=== PATIENT | female | born 1985 | race Two or more races ===

== ENCOUNTER 2019-08-29 09:46 | Inpatient (IN) | payer OTHER ==
[~2019-08-29] VITALS: Ht 177.8 cm; Wt 94.8 kg
[2019-08-29] MEDS ORDERED: Acetaminophen 500mg (ES) tab ORAL PRN (16:30)
[2019-08-29] MEDS ORDERED: DiphenhydrAMINE 50mg/ml Inj IV PRN (16:30)
[2019-08-29] MEDS ORDERED: Hydrocortisone 100mg Inj IV PRN (16:30)
[2019-08-29] MEDS ORDERED: Zolpidem 5mg tab ORAL PRN (17:00)
[2019-08-29 17:15] LABS: BASOPHILS % (AUTO) 1.1 % (0.0-2.0); EOSINOPHILS % (AUTO) 1.8 % (0.0-3.0); HEMATOCRIT 44.8 % (37.0-47.0); HEMOGLOBIN 14.2 G/DL (12.0-16.0); LYMPHOCYTES % (AUTO) 23.8 % (20.0-45.0); MEAN CORPUSCULAR VOLUME 97 FL (80-99); MONOCYTES % (AUTO) 9.5 % (1.0-10.0); NEUTROPHILS % (AUTO) 63.9 % (45.0-75.0); PLATELET COUNT 175 K/UL (150-450); RED BLOOD COUNT 4.63 M/UL (4.20-5.40); RED CELL DISTRIBUTION WIDTH 13.8 % (11.6-14.8); WHITE BLOOD COUNT 6.1 K/UL (4.8-10.8)
--- NOTE | 2019-08-29 17:38 | History & Physical ---
History and Physical History & Physicial Full noted dictated #[id number]. 33 yo male electively admitted for participation in [id number]. He feels well and has no complaints. 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
[2019-08-29] MEDS ORDERED: [UNRECOGNIZED DRUG - OTHER] PO (17:54)
--- NOTE | 2019-08-29 21:30 | History and Physical Report ---
DATE OF ADMISSION: 08/29/2019 CHIEF COMPLAINT: The patient is electively admitted for participation in Sponto clinical trial [id number]. HISTORY OF PRESENT ILLNESS: The patient is a 33-year-old man followed by Dr. Jared Enciso in my office for HIV. He was diagnosed in [place] approximately 10 years ago. His HIV vikki was 114, where he was put on Atripla and became suppressed and has remained suppressed apart from a blip that was caused by lack of access to medication. The patient was switched a few years ago to Odefsey, which he is tolerating well. He is in good condition and has no acute complaints today and he is willing to participate in the above captioned clinical trial. PAST MEDICAL HISTORY: Normal childhood illnesses. No adult illnesses other than his HIV. SURGERY: Denies. MEDICATIONS: An an outpatient include Odefsey 1 tablet once a day. ALLERGIES: No known drug allergies. SOCIAL HISTORY: The patient does not smoke or drink. Does not use recreational drugs. 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 FAMILY HISTORY: Noncontributory. PHYSICAL EXAMINATION: VITAL SIGNS: Pending. HEENT: Normocephalic and atraumatic. Pupils are equal, round, and reactive. Oropharynx is without thrush or leukoplakia. NECK: Supple. No cervical or axillary adenopathy. LUNGS: Clear to auscultation and percussion. HEART: Had a regular rhythm without murmurs, rubs, or gallops. ABDOMEN: Soft and nontender. No hepatosplenomegaly. EXTREMITIES: He had no cyanosis, clubbing, or edema. NEUROLOGIC: Grossly nonfocal. LABORATORY DATA: Laboratory results are pending. IMPRESSION: 1. HIV infection. 2. Participation in clinical trial. DISCUSSION: The patient is a very pleasant 33-year-old man, who wishes to participate in the above Sponto clinical trial. He will receive study medication in the morning. He will be observed for 2 further nights anticipating discharge on morning. The patient was afforded an opportunity again to ask questions and about participation in a clinical trial. He was informed of risks and benefits and he wishes to continue. PLAN: 1. Dose study medication at 0630 hours tomorrow morning. 2. Manage per protocol. Jared Michaels M.D. DR: HANNAH JOB#: [id number] CC: Jared Michaels M.D.; [address] [id number]; [place] [address]; Fax#: [phone] [facility]
[2019-08-30] MEDS ORDERED: [UNRECOGNIZED DRUG - OTHER] ORAL SCH (06:30)
--- NOTE | 2019-08-30 09:50 | General Progress Note ---
Progress Note Progress Note S: Pt doing well, tolerated study drug without observed AEs O: VSS Afebrile HEENT: nc/at Lungs: clear Cor: reg no murmur Abd: soft, NT Labs Test 08/29/19 16:42 White Blood Count 6.1 K/UL (4.8-10.8) Red Blood Count 4.63 M/UL (4.20-5.40) Hemoglobin 14.2 G/DL (12.0-16.0) Hematocrit 44.8 % (37.0-47.0) Mean Corpuscular Volume 97 FL (80-99) Mean Corpuscular Hemoglobin 30.8 PG (27.0-31.0) Mean Corpuscular Hemoglobin Concent 31.8 G/DL (32.0-36.0) Red Cell Distribution Width 13.8 % (11.6-14.8) Platelet Count 175 K/UL (150-450) Mean Platelet Volume 8.5 FL (6.5-10.1) Neutrophils (%) (Auto) 63.9 % (45.0-75.0) Lymphocytes (%) (Auto) 23.8 % (20.0-45.0) Monocytes (%) (Auto) 9.5 % (1.0-10.0) Eosinophils (%) (Auto) 1.8 % (0.0-3.0) Basophils (%) (Auto) 1.1 % (0.0-2.0) A: 1) HIV, well controlled on Odefsey 2) participation in [id number] P: 1) manage per protocol 2) anticipate discharge AM 09/01 Jared Michaels MD Aug 30, 2019 09:50
[2019-08-30] MEDS: ODEFSEY ORAL SCH (12:57)
[2019-08-31 00:30] VITALS: BP 112/61
--- NOTE | 2019-08-31 08:26 | General Progress Note ---
Progress Note Progress Note S: Pt doing well, no new complaints this morning O: VSS, Afebrile HEENT: nc/at Neck: supple Lungs: clear a/p Abd: soft, NT Ext: no c/c/e Labs from this morning are pending A: 1) HIV infection, well controlled 2) Participation in [id number] clinical trial P: 1) continue to observe in confinement 2) anticipate discharge tomorrow morning if stable 3) monitor labs Jared Michaels MD Aug 31, 2019 08:26
[2019-08-31 09:28] LABS: BASOPHILS % (AUTO) 0.8 % (0.0-2.0); HEMATOCRIT 38.3 % (37.0-47.0); LYMPHOCYTES % (AUTO) 25.5 % (20.0-45.0); MEAN CORPUSCULAR VOLUME 95 FL (80-99); MONOCYTES % (AUTO) 9.8 % (1.0-10.0); NEUTROPHILS % (AUTO) 61.9 % (45.0-75.0); PLATELET COUNT 155 K/UL (150-450); RED BLOOD COUNT 4.04 M/UL (4.20-5.40); RED CELL DISTRIBUTION WIDTH 12.6 % (11.6-14.8); WHITE BLOOD COUNT 6.2 K/UL (4.8-10.8)
[2019-08-31] MEDS: ODEFSEY ORAL SCH (13:32)
--- NOTE | 2019-09-01 07:04 | Discharge Summary ---
Discharge Summary Discharge Summary _ Discharge Summary dictated #[id number] 33 yo male electively admitted 08/29 for participation in Ent[employer] clinical trial [id number]. Pt tolerated administration of IP and had no observed AEs in hospital. Follow up will be in my office on Thursday. Discharge medication: Odefsey one tablet daily Discharge conditon: Jared Rock MD Sep 01, 2019 07:04
[2019-09-01 07:27] LABS: BASOPHILS % (AUTO) 0.8 % (0.0-2.0); EOSINOPHILS % (AUTO) 2.8 % (0.0-3.0); HEMATOCRIT 38.8 % (37.0-47.0); HEMOGLOBIN 13.4 G/DL (12.0-16.0); LYMPHOCYTES % (AUTO) 25.1 % (20.0-45.0); MEAN CORPUSCULAR VOLUME 94 FL (80-99); MONOCYTES % (AUTO) 10.1 % (1.0-10.0); NEUTROPHILS % (AUTO) 61.3 % (45.0-75.0); PLATELET COUNT 164 K/UL (150-450); RED BLOOD COUNT 4.11 M/UL (4.20-5.40); RED CELL DISTRIBUTION WIDTH 12.5 % (11.6-14.8); WHITE BLOOD COUNT 6.6 K/UL (4.8-10.8)
--- NOTE | 2019-09-01 20:30 | Discharge Summary ---
DATE OF ADMISSION: 08/29/2019 DATE OF DISCHARGE: 09/01/2019 DISCHARGE DIAGNOSES: 1. Participation in Ech[employer] clinical trial [id number]. 2. Human immunodeficiency virus infection, well controlled. CONDITION AT DISCHARGE: Stable. DISCHARGE MEDICATIONS: Include B[place]ark 1 tablet once a day. HISTORY OF PRESENT ILLNESS AND HOSPITAL COURSE: The patient 33-year-old man, who is electively admitted on Thursday for participation in clinical trial. He was given investigational product from Thursday and tolerated it well with no observed adverse events. He was monitored and was discharged in stable condition with follow-up in the office next week. Jared Michaels M.D. DR: HANNAH JOB#: [id number] CC: Jared Michaels M.D.; [address] [id number]; [place] [address]; Fax#: [phone]
== END 2019-09-01 07:00 | disposition home or self-care (01) | DRG 951 ==
LOC: EDSEX → 3E 16:19
PROC: XW0 New Technology, Anatomical Regions, Introduction (ICD-10-PCS; principal; 2019-08-29)
DX: Z00.6 Encounter for examination for normal comparison and control in clinical research program (principal); B20 Human immunodeficiency virus [HIV] disease
CPT/HCPCS: 36415; 85025

== ENCOUNTER 2019-09-12 09:25 | Inpatient (IN) | payer OTHER ==
[~2019-09-12] VITALS: Ht 177.8 cm; Wt 94.8 kg
[~2019-09-12 09:25] MED LIST: [UNRECOGNIZED DRUG - OTHER] PO
--- NOTE | 2019-09-12 15:00 | History and Physical Report ---
DATE OF ADMISSION: 09/12/2019 CHIEF COMPLAINT: The patient is electively admitted for participation in CLIPPATE clinical trial [id number]. HISTORY OF PRESENT ILLNESS: The patient is a 34-year-old man, followed by Dr. Jared Enciso in my office for the past 5 years when he was first seen by us in 2014, having just moved from [place], where he was diagnosed with HIV with a CD4 vikki of 114 and subsequent improvement after therapy was started with the upper 400s. The patient was started on Odefsey. He has done well in the intervening 5 years while he has been seen by Dr. Enciso. He volunteered to participate in the above clinical trial and is now admitted for the second of 5 planned biweekly admissions. He tolerated the first administration of study drug 2 weeks ago without any adverse events observed. PAST MEDICAL HISTORY: Otherwise unremarkable. 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 MEDICATIONS: As an outpatient include Odefsey 1 tablet daily. FAMILY HISTORY: Noncontributory. 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 He does not smoke. 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 REVIEW OF SYSTEMS: No fever, no cough, no shortness of breath. No nausea, vomiting, or diarrhea. No hematuria. He had occasional palpitations 2 days after study drug was administered last visit, which he thinks may be related to his coffee intake. No dysuria or hematuria. ALLERGIES: No known drug allergies. PHYSICAL EXAMINATION: GENERAL: Revealed a well-nourished, well-developed male, in no acute distress. He was alert, oriented x4. VITAL SIGNS: Stable. HEENT: Normocephalic, atraumatic. Pupils are equal, round, and reactive. Oropharynx was without thrush. NECK: Supple. LUNGS: Clear to auscultation. HEART: Regular rhythm without murmurs or gallops. ABDOMEN: Soft, nontender. EXTREMITIES: Without cyanosis, clubbing, or edema. IMPRESSION: 1. HIV infection, well controlled on Odefsey. 2. Participation in CLIPPATE clinical trial. 3. Prediabetes. 4. LGSIL. 5. History of hypovitaminosis D. DISCUSSION: The patient is a very pleasant 34-year-old man who is electively admitted today for participation in the above captioned clinical trial. He will receive study drugs tomorrow morning and we anticipate discharge on , provided that there are no adverse events observed. The patient was once again given an opportunity to ask questions and I am satisfied that he is able to give informed consent to continue participation. PLAN: Manage per protocol. Jared Michaels M.D. DR: OSCAR JOB#: [id number] CC: Jared Michaels M.D.; [address] [place] [address], [address]; [place] [address]; Fax#: [phone] [facility]
[2019-09-12] MEDS ORDERED: Acetaminophen 500mg (ES) tab ORAL PRN (17:00)
[2019-09-12] MEDS ORDERED: DiphenhydrAMINE 50mg/ml Inj IV PRN (17:00)
[2019-09-12] MEDS ORDERED: Hydrocortisone 100mg Inj IV PRN (17:00)
[2019-09-12 20:00] VITALS: BP 114/67
[2019-09-12 20:13] LABS: BASOPHILS % (AUTO) 0.8 % (0.0-2.0); EOSINOPHILS % (AUTO) 2.3 % (0.0-3.0); HEMATOCRIT 39.4 % (42.0-52.0); HEMOGLOBIN 12.7 G/DL (14.2-18.0); LYMPHOCYTES % (AUTO) 30.6 % (20.0-45.0); MEAN CORPUSCULAR VOLUME 97 FL (80-99); MONOCYTES % (AUTO) 7.3 % (1.0-10.0); PLATELET COUNT 189 K/UL (150-450); RED BLOOD COUNT 4.06 M/UL (4.70-6.10); RED CELL DISTRIBUTION WIDTH 13.3 % (11.6-14.8); WHITE BLOOD COUNT 5.9 K/UL (4.8-10.8)
--- NOTE | 2019-09-12 20:28 | History & Physical ---
History and Physical History & Physicial H&P dictated. S: Pt is electively admitted for [id number] clinical trial protocol. He has had no adverse events since last week. O: VSS Afebrile HEENT: nc/at Neck: supple Lungs: clear Cor: reg bradycardia Abd: soft, NT Ext: no c/c/e Neuro: non-focal Labs Test 09/12/19 18:55 White Blood Count 5.9 K/UL (4.8-10.8) Red Blood Count 4.06 M/UL (4.70-6.10) Hemoglobin 12.7 G/DL (14.2-18.0) Hematocrit 39.4 % (42.0-52.0) Mean Corpuscular Volume 97 FL (80-99) Mean Corpuscular Hemoglobin 31.2 PG (27.0-31.0) Mean Corpuscular Hemoglobin Concent 32.1 G/DL (32.0-36.0) Red Cell Distribution Width 13.3 % (11.6-14.8) Platelet Count 189 K/UL (150-450) Mean Platelet Volume 8.4 FL (6.5-10.1) Neutrophils (%) (Auto) 59.0 % (45.0-75.0) Lymphocytes (%) (Auto) 30.6 % (20.0-45.0) Monocytes (%) (Auto) 7.3 % (1.0-10.0) Eosinophils (%) (Auto) 2.3 % (0.0-3.0) Basophils (%) (Auto) 0.8 % (0.0-2.0) A: HIV, well controlled on Odefsey P: Pt wishes to continue his participation in the clinical trial. We will plan on dosing the investigational products tomorrow morning. All questions offered were addressed. Jared Michaels MD Sep 12, 2019 20:28
[2019-09-12] MEDS ORDERED: Zolpidem 5mg tab ORAL PRN (21:00)
[2019-09-13 05:45] VITALS: BP 107/65
[2019-09-13] MEDS ORDERED: [UNRECOGNIZED DRUG - OTHER] IVPB SCH (06:30)
[2019-09-13] MEDS ORDERED: [UNRECOGNIZED DRUG - OTHER] ORAL SCH (06:30)
[2019-09-13 08:00] VITALS: BP 113/69
[2019-09-13 11:52] VITALS: BP 100/63
--- NOTE | 2019-09-13 12:24 | General Progress Note ---
Progress Note Progress Note S: no new complaints; tolerated study medications given this morning without adverse events noted to date O: VSS. Afebrile HEENT: nc/at Neck: supple Lungs: clear Cor: reg brenda Abd: soft, NT Ext: no c/c/e Neuro: non-focal Labs Test 09/12/19 18:55 White Blood Count 5.9 K/UL (4.8-10.8) Red Blood Count 4.06 M/UL (4.70-6.10) Hemoglobin 12.7 G/DL (14.2-18.0) Hematocrit 39.4 % (42.0-52.0) Mean Corpuscular Volume 97 FL (80-99) Mean Corpuscular Hemoglobin 31.2 PG (27.0-31.0) Mean Corpuscular Hemoglobin Concent 32.1 G/DL (32.0-36.0) Red Cell Distribution Width 13.3 % (11.6-14.8) Platelet Count 189 K/UL (150-450) Mean Platelet Volume 8.4 FL (6.5-10.1) Neutrophils (%) (Auto) 59.0 % (45.0-75.0) Lymphocytes (%) (Auto) 30.6 % (20.0-45.0) Monocytes (%) (Auto) 7.3 % (1.0-10.0) Eosinophils (%) (Auto) 2.3 % (0.0-3.0) Basophils (%) (Auto) 0.8 % (0.0-2.0) A: 1. HIV infection, well controlled on Odefsey. 2. Participation in ZAOZAO clinical trial, doing well 3. Prediabetes. 4. LGSIL. 5. History of hypovitaminosis D. P: 1. Manage per protocol; pt wishes to continue participation. 2. If stable, anticipate discharge morning. Jared Michaels MD Sep 13, 2019 12:24
[2019-09-13] MEDS: ODEFSEY ORAL SCH (13:03)
[2019-09-13 16:06] VITALS: BP 121/72
[2019-09-13 20:00] VITALS: BP 116/66
[2019-09-14 00:30] VITALS: BP 121/62
[2019-09-14 07:09] LABS: BASOPHILS % (AUTO) 0.8 % (0.0-2.0); EOSINOPHILS % (AUTO) 3.1 % (0.0-3.0); HEMATOCRIT 39.8 % (42.0-52.0); HEMOGLOBIN 13.4 G/DL (14.2-18.0); MEAN CORPUSCULAR VOLUME 95 FL (80-99); MONOCYTES % (AUTO) 8.6 % (1.0-10.0); NEUTROPHILS % (AUTO) 66.5 % (45.0-75.0); PLATELET COUNT 168 K/UL (150-450); RED BLOOD COUNT 4.18 M/UL (4.70-6.10); RED CELL DISTRIBUTION WIDTH 12.5 % (11.6-14.8); WHITE BLOOD COUNT 6.1 K/UL (4.8-10.8)
[2019-09-14 08:00] VITALS: BP 122/66
[2019-09-14] MEDS: ODEFSEY ORAL SCH (12:10)
--- NOTE | 2019-09-14 14:30 | General Progress Note ---
Progress Note Progress Note S: Pt with no new complaints today. He tolerated the study medications yesterday without any observed AEs. O: VSS. Afebrile HEENT: nc/at Lungs: clear Cor: reg bradycardia Abd: soft, NT; BS nl Ext: no c/c/e Neuro: non-focal Labs Test 09/12/19 18:55 09/14/19 06:20 White Blood Count 5.9 K/UL (4.8-10.8) 6.1 K/UL (4.8-10.8) Red Blood Count 4.06 M/UL (4.70-6.10) 4.18 M/UL (4.70-6.10) Hemoglobin 12.7 G/DL (14.2-18.0) 13.4 G/DL (14.2-18.0) Hematocrit 39.4 % (42.0-52.0) 39.8 % (42.0-52.0) Mean Corpuscular Volume 97 FL (80-99) 95 FL (80-99) Mean Corpuscular Hemoglobin 31.2 PG (27.0-31.0) 32.2 PG (27.0-31.0) Mean Corpuscular Hemoglobin Concent 32.1 G/DL (32.0-36.0) 33.8 G/DL (32.0-36.0) Red Cell Distribution Width 13.3 % (11.6-14.8) 12.5 % (11.6-14.8) Platelet Count 189 K/UL (150-450) 168 K/UL (150-450) Mean Platelet Volume 8.4 FL (6.5-10.1) 7.7 FL (6.5-10.1) Neutrophils (%) (Auto) 59.0 % (45.0-75.0) 66.5 % (45.0-75.0) Lymphocytes (%) (Auto) 30.6 % (20.0-45.0) 21.0 % (20.0-45.0) Monocytes (%) (Auto) 7.3 % (1.0-10.0) 8.6 % (1.0-10.0) Eosinophils (%) (Auto) 2.3 % (0.0-3.0) 3.1 % (0.0-3.0) Basophils (%) (Auto) 0.8 % (0.0-2.0) 0.8 % (0.0-2.0) A: 1) Participation in [id number] clinical trial 2) HIV infection, well-controlled on Odefsey P: 1) Manage per protocol. Pt wishes to continue in the study. 2) Anticipate discharge tomorrow morning if stable; next infusion will be in 2 weeks. Jared Michaels MD Sep 14, 2019 14:30
[2019-09-15 07:26] LABS: BASOPHILS % (AUTO) 0.8 % (0.0-2.0); EOSINOPHILS % (AUTO) 2.9 % (0.0-3.0); HEMATOCRIT 39.4 % (42.0-52.0); HEMOGLOBIN 13.4 G/DL (14.2-18.0); LYMPHOCYTES % (AUTO) 26.2 % (20.0-45.0); MEAN CORPUSCULAR VOLUME 95 FL (80-99); MONOCYTES % (AUTO) 8.8 % (1.0-10.0); NEUTROPHILS % (AUTO) 61.4 % (45.0-75.0); PLATELET COUNT 174 K/UL (150-450); RED BLOOD COUNT 4.15 M/UL (4.70-6.10); RED CELL DISTRIBUTION WIDTH 12.5 % (11.6-14.8); WHITE BLOOD COUNT 6.2 K/UL (4.8-10.8)
--- NOTE | 2019-09-15 20:00 | Discharge Summary ---
DATE OF ADMISSION: 09/12/2019 DATE OF DISCHARGE: 09/15/2019 DISCHARGE DIAGNOSES: 1. Participation in [employer] clinical trial [id number]. 2. HIV infection, well controlled, on Odefsey. HISTORY OF PRESENT ILLNESS AND HOSPITAL COURSE: The patient is a 34-year-old man who was electively admitted earlier this week for participation in the above clinical trial. The patient received both investigational products on Thursday morning without any observed adverse events. The patient's remaining hospital stay was unremarkable. DISCHARGE DISPOSITION: Home. DISCHARGE MEDICATION: Odefsey one tablet once a day. FOLLOWUP: Followup will be in my office next week. Jared Michaels M.D. DR: Ct JOB#: [id number] CC: THO
== END 2019-09-15 06:35 | disposition home or self-care (01) | DRG 951 ==
LOC: 3E 18:49
PROC: XW0 New Technology, Anatomical Regions, Introduction (ICD-10-PCS; principal; 2019-09-12)
DX: Z00.6 Encounter for examination for normal comparison and control in clinical research program (principal); B20 Human immunodeficiency virus [HIV] disease; R85.612 Low grade squamous intraepithelial lesion on cytologic smear of anus (LGSIL); E55.9 Vitamin D deficiency, unspecified; R73.03 Prediabetes
CPT/HCPCS: 36415; 85025